=== PATIENT | female | born 1975 | race Caucasian/White ===

== ENCOUNTER 2020-02-03 13:05 | Outpatient (CLI) | payer BC ==
--- NOTE | 2020-02-03 15:05 | CT ---
SINUS CT WITHOUT CONTRAST: HISTORY: Chronic sinus infection for the past 2 years. Antibiotics have not helped. COMPARISON: None. FINDINGS: Visualized brain parenchyma is normal in attenuation. Bilateral ocular lenses are appropriately located. Both globes are intact. Retrobulbar fat is preserv ed. Symmetric attenuation of the optic nerves and ocular rectus muscles. Visualized aerodigestive tract is patent. No mucosal abnormality. The midline fatty raphae of the ton adelina appears to be preserved. The osseous margins of the maxillofacial bones and orbits are intact. Intact zygomatic arches and soumya al bones. Coronal images demonstrate patent bilateral ostiomeatal complexes. Intact, midline nasal septum. Adequate aeration of the visualized paranasal sinuses. Minimal mucosal disease involving the inferior aspect of the left and right maxillary sinus. No erosive, destructive or hypertrophic changes. Visualized mastoid air cells are adequately aerated. IMPRESSION: 1. Minimal mucosal disease of the maxillary sinuses. No hypertrophic changes to suggest a chronic sin us infection. No erosion or destruction. 2. Patent bilateral ostiomeatal complexes. Transcribed Date/Time: 02/03/2020 3:47 PM
== END 2020-02-03 13:06 | disposition home or self-care (01) ==
LOC: BICCT 13:05
PROVIDERS: ATTEND Allergy & Immunology
DX: J32.9 Chronic sinusitis, unspecified (principal)